=== PATIENT | female | born 1985 | race Hispanic/Latino ===

== ENCOUNTER 2024-04-09 12:40 | Emergency (ER) | payer SELFPAY ==
[~2024-04-09] VITALS: Ht 144.8 cm; Wt 56.7 kg
[2024-04-09 12:52] VITALS: PULSE 85; RESP 18; TEMP 98.4
[2024-04-09] MEDS: SODIUM CHLORIDE 0.9% 1000ML 1,000 ML IV STA (13:12)
[2024-04-09] MEDS: ONDANSETRON HCL INJ 2MG/ML 2ML 2 MG/ML VIAL IV STA (13:12)
[2024-04-09 13:24] LABS: BASOPHILS % 0.4 % (0.0-1.0); EOSINOPHILS % 0.2 % (0.0-6.0); HEMATOCRIT 42.4 % (34.2-44.1); HEMOGLOBIN 13.7 g/dL (12.0-16.0); LYMPHOCYTES # (AUTO) 2.2 (1.0-3.2); LYMPHOCYTES % 26.6 % (18.0-39.1); MEAN CORPUSCULAR HEMOGLOBIN 31.8 pg (28-32); MEAN CORPUSCULAR HGB CONC 32.3 g/dL (31-35); MEAN CORPUSCULAR VOLUME 98.4 fL (81-99); MONOCYTES # (AUTO) 0.4 (0.2-0.8); NEUTROPHILS # (AUTO) 5.5 (2.1-6.9); NEUTROPHILS % 67.4 % (38.7-80.0); PLATELET COUNT 284 x10e3/uL (140-360); RED BLOOD COUNT 4.31 x10e6/uL (3.6-5.1); WHITE BLOOD COUNT 8.16 x10e3/uL (4.8-10.8)
[2024-04-09 13:28] LABS: INR 0.93; PROTHROMBIN TIME 12.9 seconds (11.9-14.5)
[2024-04-09 13:29] LABS: PARTIAL THROMBOPLASTIN TIME 27.1 seconds (23.8-35.5)
[2024-04-09 13:35] LABS: ALANINE AMINOTRANSFERASE 17 IU/L (0-55); ALBUMIN 4.3 g/dL (3.5-5.0); ALKALINE PHOSPHATASE 94 IU/L (40-150); ANION GAP 15.5 mmol/L (8-16); BILIRUBIN,TOTAL 0.6 mg/dL (0.2-1.2); BLOOD UREA NITROGEN 17 mg/dL (7-26); BUN/CREATININE RATIO 18 (6-25); CALCIUM 9.6 mg/dL (8.4-10.2); CARBON DIOXIDE 21 mmol/L (22-29); CHLORIDE 104 mmol/L (98-107); CREATININE, SERUM 0.92 mg/dL (0.57-1.11); EST GLOMERULAR FILTRATION RATE 81 ML/MIN (>=60); GLUCOSE 100 mg/dL (74-118); POTASSIUM 3.5 mmol/L (3.5-5.1); SODIUM 137 mmol/L (136-145); TOTAL PROTEIN 8.5 g/dL (6.5-8.1)
[2024-04-09] MEDS: KETOROLAC TROMETHAMINE 30 MG/ML VIAL IV STA (13:43)
[2024-04-09] MEDS ORDERED: IOPAMIDOL 370 MG/ML 100 ML INFUS..BTL INJ ONE (13:54)
[2024-04-09 17:23] VITALS: BP 122/61; PULSE 68; RESP 14; O2SAT 100
== END 2024-04-09 17:29 | disposition home or self-care (01) ==
LOC: ER 12:47
DX: S70.01XA Contusion of right hip, initial encounter (principal); W01.0XXA Fall on same level from slipping, tripping and stumbling without subsequent striking against object, initial encounter; Y93.01 Activity, walking, marching and hiking; Y99.0 Civilian activity done for income or pay
CPT/HCPCS: 36415; 73552; 73700; 74177; 80053; 84702; 85025; 85610; 85730; 99284; J1885; J2405; J7030; Q9967